=== PATIENT | female | born 1965 | race Caucasian/White ===

== ENCOUNTER → 2018-05-20 14:23 | Outpatient (CLI) | payer OTHER, SELFPAY ==
--- NOTE | 2018-05-20 | DI.MG.S_ITS ---
BILATERAL DIGITAL SCREENING MAMMOGRAM 3D/2D WITH CAD: 05/20/2018 CLINICAL: Routine screening. Comparison is made to exam dated: 07/02/2014 mammogram - [facility]. There are scattered fibroglandular elements in both breasts. Current study was also evaluated with a Computer Aided Detection (CAD) system. There is an irregular equal density asymmetry with an indistinct margin in the right breast at 12 o'clock middle depth. No other significant masses, calcifications, or other findings are seen in either breast. IMPRESSION: INCOMPLETE: NEEDS ADDITIONAL IMAGING EVALUATION The irregular equal density asymmetry in the right breast is indeterminate. Mediolateral and spot compression views as well as additional views with possible ultrasound are recommended. This exam was interpreted at Station ID: [id number]. NOTE: For mammograms, a report in lay terms will be sent to the patient. Approximately 15% of breast malignancies will not be visualized mammographically. In the management of a palpable breast mass, a negative mammogram must not discourage biopsy of a clinically suspicious lesion. Electronically Signed By: Omer soto/monae:05/20/2018 16:48:28 letter sent: Additional Imaging Needed ACR BI-RADS Category 0: Incomplete 3340F
== END ==
PROVIDERS: Family Provider Internal Medicine; PCP Internal Medicine; Visit Provider Specialist
DX: Z12.31 Encounter for screening mammogram for malignant neoplasm of breast (principal); R92.8 Other abnormal and inconclusive findings on diagnostic imaging of breast
CPT/HCPCS: 77063; 77067

== ENCOUNTER → 2018-06-06 08:55 | Outpatient (CLI) | payer OTHER, SELFPAY ==
--- NOTE | 2018-06-06 08:56 | DI.MG.S_ITS ---
UNILATERAL RIGHT DIGITAL DIAGNOSTIC MAMMOGRAM 3D/2D WITH ADDITIONAL VIEWS: 06/06/2018 CLINICAL: Additional evaluation requested from prior study. Comparison is made to exams dated: 05/20/2018 mammogram - [facility] and 07/02/2014 mammogram - [facility]. There are scattered fibroglandular elements in the right breast. There is an irregular equal density mass with a spiculated margin in the right breast at 12 o'clock middle depth. No other significant masses or calcifications are seen in the breast. IMPRESSION: INCOMPLETE: NEEDS ADDITIONAL IMAGING EVALUATION The irregular equal density mass in the right breast is indeterminate. An ultrasound is recommended. This exam was interpreted at Station ID: [id number]. NOTE: For mammograms, a report in lay terms will be sent to the patient. Approximately 15% of breast malignancies will not be visualized mammographically. In the management of a palpable breast mass, a negative mammogram must not discourage biopsy of a clinically suspicious lesion. Electronically Signed By: Chan joyner/monae:06/06/2018 10:06:33 ACR BI-RADS Category 0: Incomplete 3340F
--- NOTE | 2018-06-06 08:56 | DI.US.S_ITS ---
ULTRASOUND OF RIGHT BREAST: 06/06/2018 CLINICAL: Patient returns today to evaluate a focal asymmetry in the right breast. Comparison is made to exams dated: 06/06/2018 mammogram, 05/20/2018 mammogram - [facility], and 07/02/2014 mammogram - [facility]. Color flow ultrasound of the right breast was performed. Calzada scale images of the real-time examination were reviewed. There is a 1 cm x 1 cm x 0.8 cm lobulated mass with an irregular margin in the right breast at 12 o'clock anterior depth. This correlates with mammography findings. Color flow imaging demonstrates that there is no vascularity present. IMPRESSION: SUSPICIOUS OF MALIGNANCY - FOLLOW-UP RECOMMENDED The 1 cm x 1 cm x 0.8 cm lobulated mass in the right breast is suspicious of malignancy. An ultrasound guided biopsy is recommended. Findings and recommendations discussed in person with the patient by Dr. Blackman of the department of radiology at the time of evaluation. This exam was interpreted at Station ID: [id number]. Electronically Signed By: Chan Munguia M.D. cj/:06/06/2018 12:19:07 letter sent: Biopsy Required Ultrasound BI-RADS: 4 Suspicious abnormality
== END ==
PROVIDERS: Family Provider Internal Medicine; PCP Internal Medicine; Visit Provider Specialist
DX: R92.8 Other abnormal and inconclusive findings on diagnostic imaging of breast (principal); N63.10 Unspecified lump in the right breast, unspecified quadrant
CPT/HCPCS: 76642; 77065; G0279

== ENCOUNTER → 2018-07-01 12:38 | Outpatient (CLI) | payer OTHER, SELFPAY ==
--- NOTE | 2018-07-01 | PATH_ITS ---
[facility] Accession Number: [id number] . 01 Material submitted: . RIGHT BREAST . 01 Clinical history: . MASS 12:00 7CM FROM NIPPLE . 02 Diagnosis: Right Breast Needle Core Biopsy, 12 o'clock, 7 cm from the Nipple: Infiltrating ductal carcinoma with the following features: 1. Tumor size: Longest single core area of involvement measures 0.4 cm (multiple tissue cores involved with tumor). 2. Tumor grade: Song grade 1 of 3 (score 5 of 9), nuclear score 1 of 3, mitotic score 1 of 3, tubular differentiation score 3 of 3. 3. In situ carcinoma: Ductal carcinoma in situ present, low nuclear grade, cribriform type, without necrosis. 4. Vascular/lymphatic invasion: Negative. 5. Hormone receptor studies by immunohistochemistry: Estrogen receptor: Positive. 100% of cells with strong staining. Progesterone receptor: Positive. 100% of cells with strong staining. HER-2/zulay: Positive (3+). . . COMMENT: Immunohistochemistry for e-cadherin is positive which rules out the possibility of a lobular carcinoma. Immunohistochemistry for smooth muscle myosin is also performed and indicates that the small nests of tumor which are present here are negative and therefore invasive carcinoma. The in situ carcinoma component is positive for smooth muscle myosin reaffirming its in situ nature. Case was reviewed by Dr. Edgar Rivas who agrees with the diagnosis. MRV/07/03/2018 . 02 Electronically signed: . Rakan Avila MD, Pathologist NPI- [id number] . 01 Gross description: . Received one formalin-filled container labeled with the patient's name and designated right breast mass 12 o'clock 7 cm from nipple. The specimen is received with a plastic filter, sample loose in container. The specimen consists of multiple light yellow portions of tissue which aggregate to 1.0 x 0.5 x 0.2 cm. The specimen is filtered, wrapped, and entirely submitted in one cassette. Collection date: 07/01/2018. Collection time: 1:29 P. Total fixation time: 12 hours, up to 24. ([id number]) /FRR . 02 Pathologist provided ICD-10: C50.111 . 02 CPT . 995455, T33779, 410005, 781837, 665968 Specimen Comment: A duplicate report has been generated due to demographic updates. Performed at: 01 [facility] [address] [place] [address], [place], [place] [id number] MD Omer Giles MD Phone: [phone] Performed at: 02 [facility] [address] [address] [place], [place] [id number] MD Nomi Rivas MD Phone: [phone]
--- NOTE | 2018-07-01 | DI.MG.S_ITS ---
UNILATERAL RIGHT DIGITAL DIAGNOSTIC MAMMOGRAM: 07/01/2018 CLINICAL: Post clip placement. Right breast mass. Comparison is made to exams dated: 07/01/2018 ultrasound biopsy, 06/06/2018 mammogram, 05/20/2018 mammogram - [facility], and 07/02/2014 mamm[address] - [facility]. There are scattered fibroglandular elements in right breast. There is a biopsy clip next to the biopsy site. IMPRESSION: POST PROCEDURE MAMMOGRAM FOR MARKER PLACEMENT There is a biopsy clip next to the biopsy site. This exam was interpreted at Station ID: [id number]. NOTE: For mammograms, a report in lay terms will be sent to the patient. Approximately 15% of breast malignancies will not be visualized mammographically. In the management of a palpable breast mass, a negative mammogram must not discourage biopsy of a clinically suspicious lesion. Electronically Signed By: Emily Her M.D. fx/:07/02/2018 09:03:32 Entry: - 07/02/2018 09:03:32 ACR BI-RADS Category Post-procedure mammogram for marker placement
--- NOTE | 2018-07-01 12:39 | DI.US.S_ITS ---
ULTRASOUND GUIDED BIOPSY RIGHT BREAST USING VACUUM DEVICE WITH POST MAMMOGRAPHIC AND ULTRASOUND IMAGIN07/01/2018 CLINICAL: Right breast mass. PATIENT CONSENT: Risks (minor bleeding, infection, vasovagal reaction and repeat procedure), benefits and alternatives were explained to the patient and written informed consent was obtained. Correlation is made to exams dated: 06/06/2018 ultrasound, 06/06/2018 mammogram, 05/20/2018 mammogram - [facility], and 07/02/2014 mammogram - [facility]. An ultrasound guided biopsy using real-time ultrasound was performed for the oval mass located in the right breast at 12 o'clock middle depth. This was described on the previous ultrasound report. The skin was prepped in the usual manner. Local anesthetic was administered to the access site. The abnormality was approached from the lateral aspect. A 13 gauge biopsy needle was placed adjacent to the abnormality under ultrasound guidance. Once the needle was documented to be in the correct location, five specimens were obtained using the Mammotome biopsy system. Post procedure mammographic and ultrasound imaging demonstrates the clip adjacent to the targeted area. The specimens were sent to the laboratory for pathological analysis. IMPRESSION: ULTRASOUND GUIDED BIOPSY MALIGNANT Ultrasound guided biopsy of the mass in the right breast middle depth was successful. Pathology demonstrates infiltrating ductal carcinoma. This is concordant with imaging findings. This exam was interpreted at Station ID: [id number]. Emily Ortiz M.D. fxlk/:07/04/2018 09:28:42
== END ==
PROVIDERS: PCP Internal Medicine; Visit Provider Specialist
DX: C50.811 Malignant neoplasm of overlapping sites of right female breast (principal); Z17.0 Estrogen receptor positive status [ER+]
CPT/HCPCS: 19083; 77065; G0279

== ENCOUNTER → 2018-07-11 14:36 | Outpatient (CLI) | payer OTHER, SELFPAY ==
--- NOTE | 2018-07-11 14:38 | DI.RAD.S_ITS ---
PROCEDURE: XR CHEST 2V INDICATIONS: New diagnosis breast cancer rule out Mets TECHNIQUE: 2 views of the chest were acquired. COMPARISON: [facility], , CHEST 1 VIEW, 12/10/2016, 12:54. FINDINGS: Surgical changes and devices: None. Lungs and pleura: No pleural effusions or pneumothorax. Lungs are clear. Mediastinum: Mediastinal contours are normal. Heart size is normal. Bones and chest wall: No suspicious bony abnormalities. Soft tissues appear unremarkable. IMPRESSION: No acute cardiopulmonary pathology. Dictated by: Hayder Adan M.D. on 07/11/2018 at 15:40 Approved by: Hayder Adan M.D. on 07/11/2018 at 15:41
[2018-07-11 14:53] LABS: Add Manual Diff / Slide Review NO; Basophils Percent Auto 0.8 % (0-2); Eosinophils Percent Auto 0.9 % (2-4); Hematocrit 42.1 % (36-46); Hemoglobin 14.1 g/dL (12.0-16.0); Lymphocytes Percent Auto 15.3 % (25-40); Mean Corpuscular HGB Conc 33.5 % (30-36); Mean Corpuscular Hemoglobin 28.6 PG (26-34); Mean Corpuscular Volume 85.5 fL (80-100); Monocytes Percent Auto 4.5 % (3-14); Neutrophils Absolute Auto 7600 /uL (3000-5900); Neutrophils Percent Auto 78.5 % (50-75); Platelet Count 283 X10^3/uL (150-400); Red Blood Cell Count 4.92 X10^6/uL (4.0-5.2); Red Cell Distribution Width 14.2 % (11.6-14.8); White Blood Cell Count 9.7 X10^3/uL (4.5-11.0)
[2018-07-11 15:12] LABS: Alanine Aminotransferase 43 IU/L (9-52); Albumin 4.5 g/dL (3.5-5.0); Albumin Globulin Ratio 1.6 (1.0-2.8); Alkaline Phosphatase 53 U/L (38-126); Aspartate Aminotransferase 33 IU/L (14-36); BUN Creatinine Ratio 18.6 (6-22); Bilirubin Total 0.5 mg/dL (0.2-1.3); Blood Urea Nitrogen 13 mg/dL (7-17); Calcium 9.5 mg/dL (8.4-10.2); Carbon Dioxide 23 mmol/L (22-32); Chloride 104 mmol/L (98-107); Estimated Glomerular Filt Rate > 60.0 mL/min (>60); Globulin 2.9 g/dL (1.7-4.1); Glucose 97 mg/dL (70-100); HEMOLYSIS < 15 (0-50); Potassium 4.1 mmol/L (3.4-5.1); Sodium 139 mmol/L (137-145); Total Protein 7.4 g/dL (6.3-8.2)
== END ==
PROVIDERS: PCP Internal Medicine; Visit Provider Specialist
DX: C50.919 Malignant neoplasm of unspecified site of unspecified female breast (principal)
CPT/HCPCS: 36415; 71046; 80053; 85025

== ENCOUNTER → 2018-07-24 07:33 | Outpatient (CLI) | payer OTHER, SELFPAY ==
--- NOTE | 2018-07-24 | DI.US.S_ITS ---
ULTRASOUND GUIDED WIRE LOCALIZATION RIGHT BREAST: 07/24/2018 CLINICAL: Pre-op wire localization. Correlation is made to exams dated: 07/01/2018 mammogram, 07/01/2018 ultrasound biopsy, 06/06/2018 ultrasound, 06/06/2018 mammogram, 05/20/2018 mammogram - [facility], and 07/02/2014 mammogram - [facility]. A wire localization using ultrasound guidance was performed for the mass located in the right breast at 12 o'clock middle depth. This was described on the previous biopsy report. The skin was prepped in the usual manner. Local anesthetic was administered to the access site. The localization was approached from the lateral aspect. A wire was inserted into the targeted area under ultrasound guidance. Post placement imaging demonstrates the wire traverses the targeted area. IMPRESSION: WIRE LOCALIZATION Wire localization for the mass in the right breast at 12 o'clock middle depth was successful. A specimen radiograph is recommended. This exam was interpreted at Station ID: [id number]. eJffery yates/:07/24/2018 12:33:17
== END ==
PROVIDERS: PCP Internal Medicine; Visit Provider Internal Medicine
DX: N63.10 Unspecified lump in the right breast, unspecified quadrant (principal)
CPT/HCPCS: 19285

== ENCOUNTER 2018-07-24 07:34 | Day surgery (SDC) | payer OTHER, SELFPAY ==
[2018-07-14 12:04] VITALS: BMI 42.8
[2018-07-24] VITALS (8 sets, daily range): BP systolic 103–165; BP diastolic 51–87; PULSE 70–86; RESP 12–20; TEMP 36.3–37; O2SAT 93–99; BMI 39.1
--- NOTE | 2018-07-24 | DI.MG.S_ITS ---
UNILATERAL RIGHT DIGITAL DIAGNOSTIC MAMMOGRAM: 07/24/2018 CLINICAL: Right breast mass. Comparison is made to exams dated: 07/01/2018 mammogram, 07/01/2018 ultrasound biopsy, 06/06/2018 ultrasound, 06/06/2018 mammogram, and 05/20/2018 mammogram - [facility]. There are scattered fibroglandular elements in right breast. There is a marker clip in the right breast at 12 o'clock middle depth. This marker clip placement is migrated from the biopsy site. IMPRESSION: POST PROCEDURE MAMMOGRAM FOR MARKER PLACEMENT Marker clip placement in the right breast !2:00 middle depth is migrated from biopsy site. The wire is placed through the biopsied lesion via ultrasound guidance, and this was discussed with Dr. Cole prior to surgery. Recommend specimen radiograph. This exam was interpreted at Station ID: [id number]. NOTE: For mammograms, a report in lay terms will be sent to the patient. Approximately 15% of breast malignancies will not be visualized mammographically. In the management of a palpable breast mass, a negative mammogram must not discourage biopsy of a clinically suspicious lesion. Electronically Signed By: Jeffery yates/:07/24/2018 12:29:32 ACR BI-RADS Category Post-procedure mammogram for marker placement
--- NOTE | 2018-07-24 | PATH_ITS ---
[facility] Accession Number: [id number] . 01 Material submitted: . PART A: RIGHT BREAST PART B: RIGHT SENTINEL LYMPH NODES PART C: RIGHT BREAST POSTERIOR MEDIAL POSTEROIR WALL PART D: RIGHT BREAST TISSUE UNDER LESION IMMEDIATELY ABOVE MUSCLE . 02 Diagnosis: A. Right Breast: Infiltrating ductal carcinoma of right breast. See CAP cancer summary below. 1. Procedure: Wire localized wide local excision. 2. Lymph node sampling: See Part B. 3. Specimen Laterality: Right 4. Tumor site: Not specified. 5. Tumor size: 1.5 x 1.1 x 0.3 cm (gross measurements). 6. Histologic type: Invasive ductal carcinoma, no special type. 7. Histologic grade (Song histologic score) Glandular/Tubular differentiation: Score 3 of 3. Nuclear Pleomorphism: Score 2 of 3. Mitotic Rate: Score 1 of 3. Overall Grade: Grade 2 of 3 Intermediate grade (score 6 of 9). 8. Tumor focality: Single focus. 9. Ductal carcinoma in situ: Present and considered extensive being admixed with the invasive component as well as being present peripheral to the invasive tumor. Architectural patterns: Solid. Nuclear grade: Intermediate. Necrosis: Absent. 10. Margins Invasive carcinoma: Anterior: Greater than 2 cm. Posterior: 1.1 cm. Superior: 1.3 cm. Inferior: 0.3 cm. Medial: 2.0 cm. Lateral: 2.5 cm. Ductal carcinoma in situ: Inferior margin: Positive (single microscopic focus). All other margins widely free of in situ carcinoma. 11. Regional lymph nodes: Three lymph nodes negative for tumor (all lymph nodes sentinel lymph nodes. See part B). 12. Lymph-vascular invasion: Not identified. 13. Hormone Receptor Studies: Estrogen receptor: Positive. 100% of cells with average strong staining Progesterone receptor: Positive. 100% of cells with average strong staining. Her2-Sherif: Positive (3+) 14. Pathologic staging: AJCC, 8th ed., 2017 Primary tumor: pT1c Regional lymph nodes: pN0(sn) . B. Right [place] Lymph Nodes: Three lymph nodes, all negative for malignancy on multiple sections. . C. Right Breast Posterior Medial Posterior Wall: Benign breast tissue, negative for atypia. Small microscopic lymph node, negative for malignancy. . D. Right Breast Tissue Under Lesion Immediately Above Muscle: Soft tissue including skeletal muscle, all negative for malignancy. MRV/07/29/2018 . 02 Comment: Case reviewed by Dr. Richa Bhakta, who agrees with the diagnosis. . The results of this evaluation are telephoned to the office of Dr. Jose Manuel Velarde at 11:30 a.m. on 07/29/2018. . 02 Electronically signed: . Rakan Avila MD, Pathologist NPI- [id number] . 01 Gross description: . (A) Received in formalin, labeled right breast lumpectomy, suture long medial, short anterior, is a piece of breast tissue (up to 8.5 cm AP, 3.0 cm SI, 5.5 cm ML) with no overlying skin. The specimen is oriented with two black sutures (long-medial, short-anterior). A localization wire is identified floating loose in the specimen container. The specimen is serially sectioned AP into 24 slices with the anterior and posterior resection margins as slices #1 and #24 respectively. The breast tissue is fatty and contains a wheeler-white, firm, possible mass (0.6 x 0.5 x 0.3 cm) located in slices #12 and #13, 3.8 cm from the anterior, 4.1 cm from the posterior, 1.1 cm from the superior, 1.1 cm from the inferior, 0.8 cm from the medial, and 3.7 cm from the lateral resection margins. A biopsy marker is identified within the adipose tissue of slice #14. A second possible mass (1.5 x 1.1 x 0.3 cm) is identified within slice #20, 2.1 cm from the first mass, 1.1 cm from the posterior, 1.3 cm from the superior, 1.5 cm from the inferior, 2.0 cm from the medial, and 2.5 from the lateral resection margins. No other irregular areas are identified. Ink code: Purple - anterior; yellow - posterior; black - superior; orange - inferior; green - medial; blue - lateral; red - not a resection margin. Section code: (A1) anterior resection margin, perpendicularly sectioned, registration representative; (A2-A5) slice #11, tissue adjacent to the first mass, entirely submitted; (A6-A7) slice #12, first mass, bisected ML, medial half submitted and further bisected and submitted SI; (A8-A11) slice #13, first mass, entirely submitted; (A12-A15) slice #14, tissue involving the biopsy marker, entirely submitted; (A16) slice #17, registration representative; (A17-A18) slice #18, entirely submitted; (A19-A20) slice #19, tissue adjacent to second mass, entirely submitted; (A21) slice #20, second mass, entirely submitted; (A22) slice #21, tissue adjacent to second mass, entirely submitted; (A23) slice #22, entirely submitted; (A24) slice #23, entirely submitted; (A25) posterior resection margin, perpendicularly sectioned, entirely submitted. (B) Received in formalin, labeled right sentinel nodes (lymph), are multiple pieces of adipose tissue (4.8 x 4.3 x 1.3 cm in aggregate) containing multiple lymph nodes (0.9 x 0.8 x 0.2 cm - 4.2 x 1.3 x 1.2 cm). Section code: (B1, B2) one serially sectioned lymph node in each cassette; (B3-B6) one serially sectioned lymph node. (C) Received in formalin, labeled right breast posterior medial, posterior wall, stitch forbes inside wall), is a piece of breast tissue (7.5 x 7.1 x 1.5 cm) with no overlying skin. A black suture forbes the inside wall. No localization wire or biopsy marker is identified. The inside wall is inked purple and the outside is orange. The specimen is serially sectioned into 20 slices. The breast tissue is fatty with no nodules, masses, or lesions identified. Section code: (C1) slice #1, entirely submitted; (C2) slices #2 and #3, inside wall; (C3) slices #4 and #5, inside wall; (C4) slice #6, inside wall; (C5) slice #7, inside wall; (C6) slice #8, inside wall; (C7-C8) slice #9, entirely submitted; (C9) slice #10, entirely submitted; (C10) slice #11, inside wall; (C11) slice #12, inside wall; (C12) slice #13, inside wall; (C13) slice #14, inside wall; (C14) slice #15, inside wall; (C15) slice #16, entirely submitted; (C16) slice #17, entirely submitted; (C17) slice #18, entirely submitted; (C18) slice #19, entirely submitted; (C19) slice #20, entirely submitted. NOTE: The inside wall is entirely submitted. (D) Received in formalin, labeled (right breast tissue under lesion immediately above muscle), is an unoriented piece of fibrofatty tissue (2.3 x 1.9 x 0.4 cm) with no overlying skin. No localization wire or biopsy marker is identified. The tissue is inked black, serially sectioned, and entirely submitted in cassette D1. . NOTE: Approximate total fixation time in formalin for all specimens - 70 hours and 30 minutes calculated using a collection date of 07/24/2018 with no collection time given. ([id number]) /FRR . 02 Microscopic: . . Sections from part 1 are from the right breast. The grossly described small mass is secondary to fat necrosis with no evidence of malignancy. The larger mass, however, is an infiltrating ductal carcinoma. Individual tumor cells are of intermediate size with slightly enlarged nuclei with generally fine chromatin and small to indistinct nucleoli. The tumor cells are arranged in irregular nests as they infiltrate a background fibrous stroma and also the nests infiltrate individually within adipose tissue. Mitotic activity is present but is considered low. There are focal areas in which the tumor cells appear to form small tubular structures, but this is a minimal part of the pattern. Overall, nuclear grade is considered intermediate with tubular differentiation low and mitotic rate also low. This equates to a differentation score of 6 out of 9, which is considered to be grade 2. Because of the nesting growth pattern Immunohistochemistry is performed in order to ascertain how much of the tumor is actually in situ and how much is infiltrating. Antibodies used are against smooth muscle myosin on two of the blocks. This indicates that there is a moderate amount of in situ carcinoma admixed with the infiltrating tumor. Some in situ carcinoma is seen at the periphery as well, and therefore it is considerd to be extensive. The in situ carcinoma is also of intermediate nuclear grade and of the solid type with no evidence of necrosis. The infiltrating tumor is seen to be within 0.3 cm of the inferior margin; however, the other margins are widely free of tumor was grossly described. The in situ carcinoma is also close to the inferior margin. In one area a small focus of DCIS actually touches the inked inferior margin (considered a positive margin). There is no evidence of lymphatic and/or vascular invasion in the multiple sections prepared. . IMMUNOHISTOCHEMISTRY RESULTS FOR HORMONE RECEPTORS Estrogen Receptor: Positive with 100% of the cells staining with average strong intensity. Progesterone Receptor: Positive with 100% of the cells staining with average strong intensity. HER-2/sherif: Positive (3+). . Sections from part B are of sentinel lymph nodes. Three lymph nodes have been sectioned and all are negative for malignancy. One of the lymph nodes has one area in which there are a few cells within the sinusoid suggestive of possible tumor involvement; however, immunohistochemitsry for pancytokeratin in this area is negative. . Sections from part C are from benign breast tissue stated to be posterior medial posterior wall. There is no evidence of tumor witin these sections. There is, however, a small lymph node of microscopic size present within this tissue and it is negative for malignancy. . Sections from part D are of soft tissue including fat, fibrous tissue and skeletal muscle. There is no evidence of malignancy. . 02 Pathologist provided ICD-10: C50.911 . 02 CPT . 609792, 828716, 968365, 763983, K04705, E60569, 037746, 769135, 747358 Performed at: 01 [facility] [address] [facility], [place], [place] [id number] MD Omer Giles MD Phone: [phone] Performed at: 02 [facility] [address] [place], [place] [id number] MD Nomi Rivas MD Phone: [phone]
--- NOTE | 2018-07-24 | DI.MG.S_ITS ---
SPECIMEN RIGHT BREAST: 07/24/2018 CLINICAL: Right breast specimen. Correlation is made to exams dated: 07/24/2018 mammogram and 07/01/2018 [facility]. A surgical specimen was imaged for the previous biopsy site located in the right breast at 12 o'clock middle depth. IMPRESSION: SPECIMEN The imaged specimen includes the lesion, a biopsy clip, and the distal portion of the localization wire. Waiting for pathology results. A final report will be issued when these become available. This exam was interpreted at Station ID: [id number]. Jeffery ytaes/:07/24/2018 13:29:07
--- NOTE | 2018-07-24 08:00 | DI.NM.S_ITS ---
PROCEDURE: NM SENTINEL NODE W IMAGING RADIOPHARMACEUTICAL: 0.5 mCi Millipore filtered Tc-99m sulfur colloid. INDICATIONS: localization of sentinel node TECHNIQUE: Written informed consent was obtained. The right breast was prepped and draped in a sterile fashion. Tc-99m sulfur colloid was injected intra-dermally and subcutaneously right breast. Images were obtained approximately 5-25 minutes after tracer injection. FINDINGS: [place] node identified in the anterior right axilla. IMPRESSION: Administration of subdermal radiotracer in the right breast for intra-operative sentinel lymph node localization. [place] node was visualized in the anterior right axilla. Dictated by: Yvonne Back MD, PhD on 07/24/2018 at 10:09 Approved by: Yvonne Back MD, PhD on 07/24/2018 at 10:12
[2018-07-24] MEDS: LACTATED RINGERS 1,000 ML 42 ML IV (09:53)
--- NOTE | 2018-07-24 11:44 | PM.PREOP ---
Pre-operative Note Interval Note Pre-op Check: Yes History & Physical Reviewed by Physician and Yes Exam Performed Changes: Yes H&P completed within 30 days and has changed as indicated here:: Had successful needle localization this morning
--- NOTE | 2018-07-24 11:44 | SUR.OPER ---
Supine on padded OR bed, head on pillow, arms secured on padded arm boards at <90 degrees abduction, legs uncrossed, safety belt at thigh, tape over blanket over lower legs.
[2018-07-24] MEDS: CEFAZOLIN 2 GM/100 ML FROZ.PIGGY IV (12:20)
[2018-07-24] MEDS: BUPIVACAINE 0.5% W/ EPI (PF) VIAL 30 ML INJ (13:56)
--- NOTE | 2018-07-24 14:56 | P.OP_ITS ---
Operative Date/Time/Diagnoses Date of procedure: 07/24/18 Time of procedure: 14:40 Pre-op diagnosis: Right-sided breast cancer Post-op diagnosis: same Procedure & Clinicians Procedure: Needle localization lumpectomy with sentinel node biopsies Same procedure as scheduled: Yes Indications: Surgical treatment of breast cancer Surgeon: Jose Manuel Cole Click Yes if Unassisted: Yes Anesthesia Type: General Operative Notes Findings: Three nodes removed 2 of which were hot. One was between the other 2. Larger mass than anticipated and much closer to the chest wall than imaging suggested. Removed additional tissue beyond lesion in and attempt to clear any margins that might be close Closure Type: primary Specimen(s): other (Mass with needle, margin, tissue beyond margin over pectoralis and 3 lymph nodes) Implants & Drains: None Estimated Blood Loss (mL): 30 Blood products transfused: none Procedure in detail: The patient is placed supine on the operating room table underwent general LMA anesthesia. She was prepped and draped in the usual fashion. Curvilinear incision was made overlying where the mass was thought to be an incorporated the insertion site of the needle. Was carried into the subcu and to the breast tissue. Dissection was carried around the palpable mass and this palpable mass contain the needle. Checking carefully as I went I freed the mass from surrounding structures principal using cautery. Down nearly to the chest wall I came across the bottom and found myself palpating the needle. I took additional tissue right then in their overlapping the needle and came across the bottom and released the specimen. It was sent for mammography and the lesion was thought to be right near the edge of my dissection. This was remarkable because I was almost down to chest wall and that this was not suspected based on the mammogram. Since I knew exactly where the needle had been as I had page very close attention to this I took additional tissue all along the medial wall the posterior wall and to the lateral extent of this lesion. I removed that and then finally took a small piece of tissue remaining that was right on muscle. In fact I took muscle fascia with me. This was all an attempt to make sure my posterior margin was adequate. Clips were then used to krista the cavity after irrigating the wound and obtaining hemostasis. The space was mostly able to be closed to the large size the patient's breast. This was done with interrupted 3 0 Polysorb. The skin was closed with a running 4 0 Polysorb subcuticular stitch. Attention was turned to the axilla. Local anesthetic was infiltrated and incision made just below the hair-bearing area in the crease between the axilla and breast. Was carried down into the axilla proper through the axillary fascia. Using the Navigator probe identified 3 lymph nodes and removed them. There were all adjacent to 1 another. On testing only 2 of them were hot. The 10 sec counts were 16,000 and 6900. In re-examining the axilla no other positive nodes could be found. The axillary fascia was closed after obtaining hemostasis. This was done with 3 0 Polysorb. The subcu was closed with 3 interrupted 3 0 Polysorb and the skin was closed running 4 0 Polysorb subcuticular stitch and Steri- Strips. Dressings were applied and patient was awakened extubated taken recovery room good condition. Complications: none Condition: stable Disposition: PACU
[2018-07-24] MEDS: OXYCODONE/ACETAMINOPHEN 5/325 TABLET 1 TAB PO (16:07)
== END 2018-07-24 16:50 | disposition home or self-care (01) ==
PROVIDERS: PCP Internal Medicine; Visit Provider Specialist
PROC: (CPT 19301; principal; 2018-07-24 10:45)
DX: C50.911 Malignant neoplasm of unspecified site of right female breast (principal); Z86.711 Personal history of pulmonary embolism; N63.10 Unspecified lump in the right breast, unspecified quadrant
CPT/HCPCS: 19301; 38500; 19285; 76098; 77065; 78195; A9541; J0690; J1100; J2250; J2405; J2704; J3010

== ENCOUNTER 2018-08-21 09:53 | Day surgery (SDC) | payer OTHER, SELFPAY ==
[2018-08-18 07:50] VITALS: BMI 42.8
--- NOTE | 2018-08-21 | DI.RAD.S_ITS ---
PROCEDURE: XR CHEST 1V INDICATIONS: post operative port TECHNIQUE: One view of the chest was acquired. COMPARISON: [facility], [facility]GG[facility], XR CHEST 2V, 07/11/2018, 14:43. [facility], [facility], CHEST 1 VIEW, 12/10/2016, 12:54. FINDINGS: Surgical changes and devices: Port-A-Cath in normal position from a left-sided approach.. Lungs and pleura: No pleural effusions or pneumothorax. Lungs are clear. Mediastinum: Mediastinal contours appear normal. Heart size is normal. Bones and chest wall: No suspicious bony lesions. Overlying soft tissues appear unremarkable. IMPRESSION: Port-A-Cath in normal position, no pneumothorax found. Dictated by: Bret Lora M.D. on 08/21/2018 at 14:23 Approved by: Bret Lora M.D. on 08/21/2018 at 14:24
[2018-08-21 10:21] VITALS: BP 147/86; PULSE 66; RESP 16; TEMP 36.6; O2SAT 98; BMI 42.8
--- NOTE | 2018-08-21 10:41 | PM.PREOP ---
Pre-operative Note Interval Note Pre-op Check: Yes History & Physical Reviewed by Physician and Yes Exam Performed Changes: Yes H&P completed within 30 days and has changed as indicated here:: Wound in axilla has closed
[2018-08-21 10:53] VITALS: BMI 42.8
[2018-08-21] MEDS: CEFAZOLIN 2 GM/100 ML FROZ.PIGGY IV (11:35)
--- NOTE | 2018-08-21 11:59 | SUR.OPER ---
Supine on gel mattress, head on gel donut, towel roll under shoulders, left arm gel padded and tucked. Right arm on padded armboard <90 and secured. Padded safety strap to thighs over blanket, tape to lower legs over blanket to secure. Legs uncrossed.
[2018-08-21] MEDS: LIDOCAINE 1% 20 ML INJ INJ (12:08)
[2018-08-21] MEDS: HEPARIN 5,000 UNIT, SODIUM CHLORIDE 0.9% 50 ML IV (12:09)
[2018-08-21 12:26] VITALS: BP 121/61; PULSE 80; RESP 13; TEMP 36.3; O2SAT 99
[2018-08-21 12:31] VITALS: BP 117/59; PULSE 72; RESP 11; O2SAT 98
[2018-08-21 12:37] VITALS: BP 111/60; PULSE 71; RESP 10; TEMP 36.4; O2SAT 100
[2018-08-21 12:41] VITALS: BP 124/51; PULSE 72; RESP 10; O2SAT 100
--- NOTE | 2018-08-21 12:41 | PM.OP.1 ---
Operative Date/Time/Diagnoses Date of procedure: 08/21/18 Time of procedure: 12:30 Pre-op diagnosis: Right-sided breast cancer Post-op diagnosis: same Procedure & Clinicians Procedure: Placement of left subclavian Port-A-Cath Same procedure as scheduled: Yes Indications: Need for IV access Surgeon: Jose Manuel Cole Click Yes if Unassisted: Yes Anesthesia Type: General Operative Notes Findings: Tip in the SVC. No evidence of pneumothorax. Closure Type: primary Specimen(s): none sent Implants & Drains: Regular profile Port-A-Cath Estimated Blood Loss (mL): 5 Procedure in detail: Patient is placed supine on the operating room table and underwent general LMA anesthesia. Roll was placed between her shoulders. She was prepped and draped in the usual fashion. Local anesthetic was infiltrated in a field block fashion under the left clavicle. Transverse incision was made and needle inserted into the subclavian vein. Guidewire was passed the needle removed. The guidewire was going into the appropriate direction. The pocket was created inferior to the incision and a port was connected to the catheter and taper to appropriate length. The port was placed in the pocket. Dilator and introducer were passed over the guidewire under fluoroscopic control. The dilator and guidewire were removed leaving the introducer in place. The catheter was passed through it initial we went up into the neck. I backed it out and began to peel the catheter way it slipped down into the superior vena cava and was advanced further. The catheter was then peeled completely away and the catheter tip was left in the superior vena cava. The port was secured to the chest wall with interrupted 2 0 silk. The subcu was closed with 3 0 Polysorb. The skin was closed a running 4 0 Polysorb subcuticular stitch and Steri-Strips. Prior to closure the port was aspirated and flushed with heparinized saline. Dressing was applied the patient was taken to recovery room extubated in good condition. A chest x-ray performed there showed the tip in the SVC and no evidence of a pneumothorax. Complications: none Condition: stable Disposition: PACU
[2018-08-21 12:53] VITALS: BP 129/70; PULSE 68; RESP 15; TEMP 36.7; O2SAT 98
== END 2018-08-21 13:12 ==
LOC: OR 09:54
PROVIDERS: PCP Internal Medicine; Visit Provider Specialist
PROC: (CPT 36561; principal; 2018-08-21 11:00)
DX: C50.911 Malignant neoplasm of unspecified site of right female breast (principal); Z45.2 Encounter for adjustment and management of vascular access device; I10 Essential (primary) hypertension; E03.9 Hypothyroidism, unspecified; Z86.711 Personal history of pulmonary embolism; Z87.891 Personal history of nicotine dependence
CPT/HCPCS: 36561; 71045; C1788; J0690; J1100; J1644; J2250; J2405; J2704; J3010

== ENCOUNTER → 2018-09-02 13:58 | Outpatient (CLI) | payer OTHER, SELFPAY ==
[2018-09-02 15:32] LABS: Add Manual Diff / Slide Review NO; Basophils Percent Auto 1.1 % (0-2); Eosinophils Percent Auto 1.4 % (2-4); Hematocrit 39.3 % (36-46); Lymphocytes Percent Auto 28.3 % (25-40); Mean Corpuscular HGB Conc 33.1 % (30-36); Mean Corpuscular Volume 87.6 fL (80-100); Monocytes Percent Auto 6.9 % (3-14); Neutrophils Absolute Auto 7300 /uL (3000-5900); Neutrophils Percent Auto 62.3 % (50-75); Platelet Count 294 X10^3/uL (150-400); Red Blood Cell Count 4.49 X10^6/uL (4.0-5.2); Red Cell Distribution Width 14.2 % (11.6-14.8); White Blood Cell Count 11.7 X10^3/uL (4.5-11.0)
== END ==
PROVIDERS: PCP Internal Medicine; Visit Provider Specialist
DX: D72.9 Disorder of white blood cells, unspecified (principal)
CPT/HCPCS: 36415; 85025

== ENCOUNTER 2019-10-19 08:52 | Day surgery (SDC) | payer OTHER, SELFPAY ==
[2019-10-19] VITALS (7 sets, daily range): BP systolic 127–149; BP diastolic 62–84; PULSE 61–72; RESP 11–16; TEMP 35.7–36.1; O2SAT 92–98
[2019-10-19] MEDS: LACTATED RINGERS 1,000 ML 42 ML IV (09:03)
--- NOTE | 2019-10-19 10:20 | PM.HP.1 ---
History of Present Illness History of Present Illness Date Patient Seen: 10/19/19 Time Patient Seen: 10:21 Chief complaint: [id number] PORT REMOVAL Narrative: The patient is a woman who has completed chemotherapy for breast cancer and is here to have her port removed. Patient History Medical History Anemia, unspecified (Resolved) Breast cancer, right (Acute) Hypertension (Chronic) Hypothyroid (Chronic) Osteoarthritis (Chronic) Other pulmonary embolism with acute cor pulmonale (Resolved) Perimenopausal (Suspected) Personal history of pulmonary embolism (Resolved ~12/2016) Port-A-Cath in place (Acute 08/21/18) Pulmonary hypertension (Resolved ~12/2016) Systolic heart failure (Resolved) Surgical History History of cholecystectomy (Resolved) History of lateral meniscus repair of right knee (Resolved) History of tonsillectomy (Resolved) S/P lumpectomy, right breast (Acute 07/24/18) Status post hysteroscopy (12/20/17) Family & Social History Social History: household members spouse Tobacco & Substance use: Smoking Status Former smoker alcohol intake current Substance Use Type does not use Meds Home Medications and Allergies Home Medications Medication Instructions Recorded Confirmed Type aspirin 81 mg PO DAILY #0 12/10/16 10/19/19 History levothyroxine [Synthroid] 175 mcg PO DAILY #0 12/10/16 10/19/19 History metoprolol tartrate 25 mg PO BID #60 12/12/16 10/19/19 Rx multivitamin 1 tab PO DAILY 07/24/18 10/19/19 History ondansetron 8 mg PO BID-TID PRN #10 tab 07/24/18 10/19/19 Rx oxycodone-acetaminophen [Percocet] See Rx Instructions .ROUTE 07/24/18 08/18/18 Rx .COMPLEX PRN #20 tab anastrozole 1 mg 10/19/19 History diclofenac sodium 75 mg PO BID 10/19/19 10/19/19 History magnesium chloride [Slow-Mag] 71.5 mg PO BID 10/19/19 10/19/19 History Allergies Allergy/AdvReac Type Severity Reaction Status Date / Time penicillin G [PENICILLIN G] Allergy Intermediate HIVES Verified 10/19/19 09:05 steri strips Allergy Mild Uncoded 10/19/19 09:05 tegaderm Allergy Mild Uncoded 10/19/19 09:09 Review of Systems Review of Systems ROS Unobtainable: All systems reviewed & are unremarkable except as noted in HPI and below Exam Vital Signs (past 8 hours): - 10/19/19 09:17 Temperature 96.3 F L Pulse Rate 72 Respiratory Rate 16 Blood Pressure 149/81 H Pulse Oximetry 98 Oxygen Delivery Method Room Air Narrative Exam Narrative: Co Operative no apparent distress. Eyes are nonicteric. Lungs are clear to auscultation nose rales or rhonchi. Heart regular rate and rhythm without murmur gallop. Scar left in for for a clavicular fossa noted. Port is there below the scar. No cellulitis or rashes in the region. Assessment & Plan Assessment & Plan narrative: Patient with breast cancer who has completed chemotherapy. She is here for port removal. I've discussed the procedure and Rony and risks of bleeding infection scarring and a divot. She appears to understand and wishes to proceed. The patient does not tolerate Steri-Strips or Tegaderm very well so I will closure with suture and use alternative dressing.
--- NOTE | 2019-10-19 10:23 | PM.PREOP ---
Pre-operative Note Interval Note History & Physical reviewed/Exam performed by Physician: Yes Changes to H&P: No
[2019-10-19] MEDS: CLINDAMYCIN 900 MG/50 ML PIGGYBACK 50 MG IV (10:27)
--- NOTE | 2019-10-19 10:46 | SUR.OPER ---
Supine on padded OR bed, head on pillow, left arm padded and tucked at side,right arm at less than 90 degrees on padded armboard. legs uncrossed, safety belt at thigh, tape over blanket over lower legs .
[2019-10-19] MEDS: BUPIVACAINE 0.5% (PF) VIAL 30 ML INJ (10:52)
--- NOTE | 2019-10-19 11:18 | PM.OP.1 ---
Operative Date/Time/Diagnoses Date of procedure: 10/19/19 Time of procedure: 11:00 Pre-op diagnosis: Breast cancer post chemotherapy Post-op diagnosis: same Procedure & Clinicians Procedure: Removal of left subclavian Port-A-Cath Same procedure as scheduled: Yes Indications: Patient with a Port-A-Cath no longer need of it Surgeon: Jose Manuel Cole Click Yes if Unassisted: Yes Anesthesia Type: General Operative Notes Findings: Port removed in its entirety Closure Type: primary Specimen(s): none sent Prosthetic devices, grafts, tissues, transplants, or devices: None Estimated Blood Loss (mL): 5 Blood products transfused: none Procedure in detail: The patient is placed supine on the operating room table and underwent general LMA anesthesia. She was prepped and draped in the usual fashion. Incision was made through the old scar after infiltrating local in a field block fashion around the port site. The incision was carried down to the level of the catheter. Catheter was from surrounding structures. A 3 0 Vicryl pursestring was placed around the catheter. The catheter was removed and the pursestring tied down to prevent back bleeding of the canal through which the catheter had been. The port was then dissected from the subcutaneous tissues and removed. The back wall of the encasing tissue was removed with cautery. Vicryl 300 was used to close the subcu. Because of the patient's severe reaction to tape/Steri-Strips in the past I used interrupted 4 0 Vicryl to close the skin covering it with Dermabond. The patient was awakened and taken to the recovery area in good condition. Complications: none Post-operative Condition: stable Disposition: PACU Plan for aftercare: Follow-up in the office
== END 2019-10-19 12:00 | disposition home or self-care (01) ==
PROVIDERS: Family Provider Internal Medicine; PCP Internal Medicine; Visit Provider Specialist
PROC: (CPT 36590; principal; 2019-10-19 10:45)
DX: Z45.2 Encounter for adjustment and management of vascular access device (principal); Z85.3 Personal history of malignant neoplasm of breast; E66.9 Obesity, unspecified; E03.9 Hypothyroidism, unspecified; I10 Essential (primary) hypertension
CPT/HCPCS: 36590; J1100; J1885; J2250; J2405; J2704; J3010

== ENCOUNTER → 2020-04-26 15:47 | Outpatient (CLI) | payer OTHER, SELFPAY ==
[2020-04-26 16:04] LABS: Bacteria Urine None Seen; WBC Urine None Seen (0-5/HPF)
[2020-04-26 17:09] LABS: Appearance Urine UA CLEAR; Bilirubin Urine UA NEGATIVE (NEGATIVE); Color Urine UA YELLOW; Glucose Urine UA NEGATIVE (Negative); Ketones Urine UA NEGATIVE (NEGATIVE); Leukocyte Esterase Urine UA NEGATIVE (NEGATIVE); Nitrite Urine UA NEGATIVE (Negative); Occult Blood Urine UA NEGATIVE (Negative); Protein Urine UA NEGATIVE (Negative); Urobilinogen Urine UA 0.2 E.U./dL (0.2)
[2020-04-26 17:18] LABS: RBC Urine 0-1/HPF (0-5/HPF); Squamous Epithelial Cell Urine 0-1 /HPF (0-5/HPF)
[2020-04-26 17:19] LABS: Culture Indicated Urine Cult Not Indicated
[2020-04-26 17:27] LABS: Add Manual Diff / Slide Review NO; Basophils Absolute Auto 100 /uL (0-100); Basophils Percent Auto 0.8 % (0-2); Eosinophils Absolute Auto 200 /uL (0-450); Eosinophils Percent Auto 2.4 % (2-4); Hematocrit 40.4 % (36-46); Hemoglobin 14.2 g/dL (12.0-16.0); Lymphocytes Absolute Auto 2500 /uL (1100-4500); Lymphocytes Percent Auto 25.8 % (25-40); Mean Corpuscular HGB Conc 35.2 % (30-36); Mean Corpuscular Hemoglobin 30.9 PG (26-34); Mean Corpuscular Volume 87.8 fL (80-100); Monocytes Absolute Auto 500 /uL (0-900); Monocytes Percent Auto 5.4 % (3-14); Neutrophils Absolute Auto 6200 /uL (1500-7000); Neutrophils Percent Auto 65.6 % (50-75); Platelet Count 208 X10^3/uL (150-400); Red Cell Distribution Width 14.6 % (11.6-14.8); White Blood Cell Count 9.5 X10^3/uL (4.5-11.0)
[2020-04-26 17:34] LABS: Hemoglobin A1C% w Est Avg Glu 5.4 % (4.0-6.0)
[2020-04-26 17:42] LABS: BUN Creatinine Ratio 30.3 (6-22); Blood Urea Nitrogen 23 mg/dL (7-17); Calcium 10.1 mg/dL (8.4-10.2); Carbon Dioxide 20 mmol/L (22-32); Chloride 100 mmol/L (98-107); Estimated Glomerular Filt Rate > 60.0 mL/min (>60); Glucose 92 mg/dL (70-100); HEMOLYSIS < 15 (0-50); Potassium 3.9 mmol/L (3.4-5.1); Sodium 133 mmol/L (137-145)
[2020-04-26 17:57] LABS: Free T4, Direct Thyroxine 1.74 ng/dL (0.78-2.19)
[2020-04-26 18:11] LABS: Thyroid Stimulating Hormone 4.22 uIU/mL (0.47-4.68)
== END ==
PROVIDERS: Family Provider Internal Medicine; PCP Internal Medicine; Referring Provider Internal Medicine; Visit Provider Orthopaedic Surgery
DX: Z01.818 Encounter for other preprocedural examination (principal); Z01.812 Encounter for preprocedural laboratory examination; R73.9 Hyperglycemia, unspecified; N39.0 Urinary tract infection, site not specified; E03.9 Hypothyroidism, unspecified
CPT/HCPCS: 36415; 80048; 81001; 83036; 84439; 84443; 85025; 93005

== ENCOUNTER → 2020-06-04 09:06 | Outpatient (CLI) | payer OTHER, SELFPAY ==
[2020-06-05 09:30] LABS: COVID19 Sendout Not Detected (Not Detect)
== END ==
PROVIDERS: Family Provider Internal Medicine; PCP Internal Medicine; Visit Provider Physician Assistant
DX: Z11.59 Encounter for screening for other viral diseases (principal)
CPT/HCPCS: 87635

== ENCOUNTER 2020-06-07 06:16 | Day surgery (SDC) | payer OTHER, SELFPAY ==
[2020-05-31 09:44] VITALS: BMI 38.7
[2020-06-07] VITALS (15 sets, daily range): BP systolic 117–158; BP diastolic 68–86; PULSE 69–91; RESP 12–74; TEMP 36.2–36.7; O2SAT 93–99; BMI 38.7
--- NOTE | 2020-06-07 | DI.RAD.S_ITS ---
PROCEDURE: XR KNEE RT 1TO2V INDICATIONS: POST OP RIGHT KNEE TECHNIQUE: 2 view(s) of the knee acquired. COMPARISON: None. FINDINGS: Bones: Patient is status post knee joint arthroplasty. Hardware components are in expected positions. Visualized bony structures are intact. Soft tissues: Overlying postoperative changes are noted. IMPRESSION: Normal alignment after right total knee arthroplasty. Dictated by: Bret Lora M.D. on 06/07/2020 at 14:32 Approved by: Bret Lora M.D. on 06/07/2020 at 14:32
[2020-06-07] MEDS: PREGABALIN 75 MG CAPSULE PO (06:46)
[2020-06-07] MEDS: CELECOXIB 200 MG CAPSULE PO (06:46)
[2020-06-07] MEDS: ACETAMINOPHEN 325 MG TABLET 975 MG PO (06:46)
[2020-06-07] MEDS: VANCOMYCIN 1,000 MG/200 ML PIGGYBACK 200 MG IV (06:49)
--- NOTE | 2020-06-07 07:46 | PM.PREOP ---
Pre-operative Note COVID-19 COVID-19 status: Negative Interval Note History & Physical reviewed/Exam performed by Physician: Yes Changes to H&P: No H&P completed within 30 days and has changed as indicated here:: cor rrr, lungs, clear, abd benign, right leg valgus deformity
--- NOTE | 2020-06-07 07:47 | P.OP_ITS ---
Operative Date/Time/Diagnoses Date of procedure: 06/07/20 Time of procedure: 07:59 Pre-op diagnosis: severe right knee OA Post-op diagnosis: same Procedure & Clinicians Procedure: right total knee arthroplasty Same procedure as scheduled: Yes Indications: The patient has had progressively worsening right knee pain with radiographic changes consistent with arthritis. Non-operative management has failed and the patient has requested total knee replacement. The risks, benefits and alternatives to surgery were discussed with the patient prior to proceeding. Risks discussed included, but were not limited to, failure to relieve pain, stiffness, infection, nerve damage, deep venous thrombosis, pulmonary embolism, stroke, coma, heart attack, permanent paralysis and , as well as the potential need for eventual revision of the prosthetic. Surgeon: Tricia Mac Patent Searcher: Reilly Vazquez Anesthesia Type: General and Spinal Operative Notes Findings: Severe valgus. Adequate stability, at acceptable alignment postoperatively, good range of motion stability. PROCEDURE IN DETAIL: The patient was seen in the pre-operative area, where the patient identified the right knee as the operative site and this was marked with my initials. The patient received pre-operative antibiotics, and was taken to the operating room and placed on the operative table in the supine position. After satisfactory anesthesia, a harness repairer out was performed. The right leg was encircled with a tourniquet about the proximal thigh, and the leg was prepared from the toes to the tourniquet with ChloroPrep in the usual fashion and draped through sterile drapes. The leg was elevated and exsanguinated with Eschmark bandage and the tourniquet inflated to [250] mmHg pressure. The knee was approached through an approximately 18 cm incision centered over the patella and carried into the knee through a medial parapatellar arthrotomy. A portion of the medial and lateral meniscus was resected. Soft tissue was car efully mobilized around the patella the patella was measured with a caliper. Bone was resected from the patella and the patellar height was reconstituted with up an appropriate sized patellar component. It was oval. A Cover was then placed on the patella. A small amount of additional medial and lateral meniscus was resected. The visionary guide fit well to the distal femur. It looked like an appropriate distal femoral cut and the cut was made without difficulty. The rotation was assessed and the appropriate size femoral guide was placed on the distal femur and finishing cuts were made. There is no evidence of notching. The anterior, posterior and chamfer cuts were then made. The posterior osteophytes and soft tissues were then removed. The posterior capsule was injected with part of a mixture of 60 ml 0.25% Marcaine mixed with 20 ml Exparel for post operative pain control. The remainder of this mixture was injected into the capsule and subcutaneous tissues during cement curing. The tibia was prepared and the visionaire guide fit well to the distal tibia. The rotation was assessed. The patient was placed in extension residual medial and lateral meniscus as well as any residual bone was carefully resected. 2 mm additional tibia was resected. Hemostasis was achieved especially posteriorly. Additional local was injected into the posterior capsule. The extension gap was assessed and additional releases for gap balancing were performed as necessary. It was checked with the gap manager respiratory care. The femoral component was trial was placed and the notch was finished. Trial tibial and femoral components were then placed and the knee placed through a range of motion. Range of motion was [0-130], with good stability throughout the range. The trials were then removed, and the tibia was finished. The bone was prepared with pulsatile lavage, and dried with a sponge. Cement was applied and the final prosthetics placed. Excess cement was removed during and after cement curing. A brief Betadine soak was performed. After confirming there was no extruded cement posteriorly, the final tibial insert was placed. The knee was copiously irrigated and the tourniquet deflated. Hemostasis was obtained with the Bovie cautery. A drain was placed and brought out superolaterally. The capsule was closed with interrupted # 1 Vicryl suture. The subcutaneous layer was closed with barbed sutures, and the skin with a running 3-0 V-Lock suture and Surgical glue. An court dressing was applied and the patient was taken to recovery having tolerated the procedure well. Closure Type: primary Specimen(s): none sent Prosthetic devices, grafts, tissues, transplants, or devices: Mac and Nephew Shannon velasquez BCS 2 size 6 femur, size 5 tibia, 35 mm oval patella, 9 mm poly Applied: drain(s) Estimated Blood Loss (mL): 250 Tourniquet time (min): 85 Complications: none Post-operative Condition: stable Disposition: Acute Care Plan for aftercare: The patient will be maintained on a standard total knee replacement protocol with weight bearing as tolerated. The patient will receive aspirin and sequential compression devices for DVT prophylaxis. The patient will be discharged home when safe for the home environment.
[2020-06-07] MEDS: CLINDAMYCIN 900 MG/50 ML PIGGYBACK 50 MG IV ×3 (07:55→23:29)
--- NOTE | 2020-06-07 08:19 | SUR.OPER ---
Supine on padded OR bed. Pillow under head, arms secured on padded armboards <90 degree abduction. Safety belt across torso. Non-operative leg secured with tape over blanket over lower leg. Operative leg secured in DeMayo/Don positioner. Foam padded brace at thigh of operative leg.
[2020-06-07] MEDS: BUPIVACAINE 0.25% W/ EPI 30 ML VIAL 60 ML INJ (08:32)
[2020-06-07] MEDS: BUPIVACAINE LIPOSOME 266 MG/20 ML VIAL INJ (08:33)
[2020-06-07] MEDS: SODIUM CHLORIDE IRRIG SOLUTION 250 ML, POVIDONE-IODINE SPONGE STICKS 1 APPLIC IRR (08:34)
--- NOTE | 2020-06-07 10:51 | SUR.PHASEI ---
1045 Pt handoff to Zach in room 213, pt stable A&O, denies pain or nausea. VSS.
[2020-06-07] MEDS: LACTATED RINGERS 1,000 ML 100 ML IV ×2 (11:23→22:38)
--- NOTE | 2020-06-07 12:26 | PC.NURSE ---
Day shift: Pt on unit from PACU at approx 1030. She is A&Ox3 w/ no c/o pain. PPP and CMS ok. VS WNL. RA 98%. Denies any chest pain. SCD's in place. Oriented to room and call light. Call light in reach. AGrees to not get OOB w/o help from staff.
--- NOTE | 2020-06-07 13:25 | PT.IIE ---
Current Diagnoses Unilateral primary osteoarthritis, right knee (06/07/20) Surgery Performed Operation Date: 06/07/20 07:45 Actual Procedures p Total Knee Arthroplasty(Right) - Tricia Mac MD Surgical History (Last Updated 05/31/20 @ 10:11 by Rebekah Gonzales, RN) History of cholecystectomy (Resolved 1996) History of lateral meniscus repair of right knee (Resolved) History of removal of Port-a-Cath (Acute 10/19/19) History of tonsillectomy (Resolved) S/P lumpectomy, right breast (Acute 07/24/18) Status post hysteroscopy (12/20/17) Medical History (Last Updated 05/31/20 @ 10:14 by Rebekah Gonzales RN) Anemia, unspecified (Resolved) Breast cancer, right (Acute) COVID-19 virus infection (Acute 01/2020) Hypertension (Chronic) Hypothyroid (Chronic) Neuropathy (Acute) Osteoarthritis (Chronic) Other pulmonary embolism with acute cor pulmonale (Resolved) Perimenopausal (Suspected) Personal history of pulmonary embolism (Resolved ~12/2016) Port-A-Cath in place (Acute 08/21/18) Pulmonary hypertension (Resolved ~12/2016) Systolic heart failure (Resolved) Physical Therapy Inpatient Evaluation/Re-Eval M1 PT/OT-IP Prior Functional Status Start: 06/07/20 16:01 Freq: NEEDED Status: Active Protocol: Document 06/07/20 13:25 AB (Rec: 06/07/20 16:12 AB [id number]) Medical Review Prior Functional Status Medical History Reviewed Yes Communication able to make needs known Mobility and Gait pt stated that she is independent with all mobilities and ambulation without AD Social History Household Members spouse Living Arrangements House Number of Floors (Floors) Two Floors Number of Stairs To Enter/Railing? 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 M2 PT-IP Current Condition Start: 06/07/20 16:01 Freq: NEEDED Status: Active Protocol: Document 06/07/20 13:25 AB (Rec: 06/07/20 16:12 [id number]) Physical Therapy Current Condition Current Condition Evaluation Date 06/07/20 Treatment Diagnosis s/p R TKA; difficulty in walking Onset Date 06/07/20 Weight Bearing Status Weight Bearing Status Weight Bear as Tolerated Allowed Weight Bearing Amount (enter % WBAT RLE or #) (%) M3 PT-IP Subjective Start: 06/07/20 16:01 Freq: NEEDED Status: Active Protocol: Document 06/07/20 13:25 AB (Rec: 06/07/20 16:12 [id number]) Subjective Physical Therapy Visit Type Type Initial Evaluation Visit Start Time 13:25 Visit Stop Time 14:04 Total Visit Minutes 39 Number of PROGRAM COUNSELOR Visits 0 Physical Therapy Visit Comments Patient Comments pt is agreeable to do PT Therapy Pain Assessment Pain When Pain Assessed At Rest Pain Present Pain Present Pain Reported Location Right Knee Intensity 1 Scale Used increases to 3/10 with mobility Pain Management Techniques Apply Cold,Modification of Treatment,Re-positioning, Timing of Activity with Medications M4 PT-IP Mobility and Gait Start: 06/07/20 16:01 Freq: NEEDED Status: Active Protocol: Document 06/07/20 13:25 AB (Rec: 06/07/20 16:12 [id number]) PT-Bed Mobility Assessment Supine to Sit Supine to Sit Standby Assistance Sit to Supine Sit to Supine Standby Assistance Scooting Scooting to Edge of Bed Standby Assistance PT-Transfer Assessment Sit to and From Stand Sit to and from Stand Minimal Assistance,1 Person Assistance,Use of Upper Extremities Equipment Transfer Assistive Device Gait Belt,Front Wheeled Walker Orthotic/Prosthetic Devices or Brace: No Transfers Transfer Destination Chair Transfer Technique Stand Step Pivot Transfer Ability Level of Assist Contact Guard Assistance, Minimal Assistance,1 Person Assistance,Use of Upper Extremities Comments Mobility Comments completed supine to sit SBA and was able to sit on EOB SBA . completed sit to stand min A and cues and completed step transfer to chair min A and cues. agreed to ambulate in room. completed sit to stand CGA and cues and ambulated in room using FWW ~ 40 ft initially min A but towards end of ambulation only requiring CGA. Pt agreed to sit up on chair. positioned pt on chair. call light and table placed within reach. Gait Assessment Gait Gait Assistance Required: Contact Guard Assist,Minimum Assistance Distance (Feet) 40 Able to Maintain Weight Bearing Status Yes During Gait Assistive Devices Assistive Device Gait Belt,Front Wheeled Walker Orthotic/Prosthetic Devices or Brace: No Gait Deviations General Gait Pattern Antalgic,Decreased Stride Length,Decreased Feet Clearance Factors Limiting Gait Function Factors Limiting Gait Function Decreased Activity Tolerance, Decreased Sensation,Decreased Strength,Limited Range of Motion,Pain,Poor Balance,Poor Safety Awareness Comments Gait Comments pls refer to mobility section for details PT-Balance Assessment Sitting Balance and Reactions Static Sitting Balance Ability Normal Dynamic Sitting Balance Ability Normal Standing Balance and Reactions Static Standing Balance Ability Fair Dynamic Standing Balance Ability Fair Device Used FWW M5 PT-IP Objective Assessments Start: 06/07/20 16:01 Freq: NEEDED Status: Active Protocol: Document 06/07/20 13:25 AB (Rec: 06/07/20 16:12 AB [id number]) Orientation Orientation/Cognition Level of Alertness Alert Orientation Name,Age,Birthday,Month,Date, Year,Day of Week,Place, Situation Language Function Ability No Deficits Noted Safety Awareness Understands Safety Issues Memory Description No Deficits Noted Gross Range of Motion Lower Extremity ROM Assessment Within Functional Limits Impairments R knee flexion: ~ 90 deg Strength Lower Extremity Strength Assessment Right Impaired Hip 4-/5 Knee 4-/5 Coordination Assessment Gross Coordination Gross Coordination WNL Sensation Assessment Sensation Gross Sensation Right LE Impaired Light Touch Impaired Sensation Description Numbness Comments Sensation Comments still c/o slight numbness on RLE Muscle Tone Muscle Tone WNL Yes M6 PT-IP Treatment Start: 06/07/20 16:01 Freq: NEEDED Status: Active Protocol: Document 06/07/20 13:25 AB (Rec: 06/07/20 16:12 AB [id number]) Physical Therapy Treatment Exercises Exercises Heel Slides Education Education Provided Precautions,Weight Bearing Status,Post-Op Packet,Safety M7 PT-IP Assessment and Plan Start: 06/07/20 16:01 Freq: NEEDED Status: Active Protocol: Document 06/07/20 13:25 AB (Rec: 06/07/20 16:12 AB [id number]) PT Summary Assessment and Plan Potential Rehabilitation Potential Good Status of Condition at Evaluation Stable Summary Impairments Pain,ROM,Strength,Balance, Coordination,Sensation,Tone, Cognition,Bed Mobility, Transfers,Gait,Activity Tolerance Assessment Summary pt s/p R TKA and just had surgery this morning. pt simon likely progress with mobility and plans to go home with spouse to assist her. pt is set up for outpt PT. will conduct caregiver training if appropriate and have to complete stair climbing training prior to d/c. Goals Bed Mobility Goal Independent Transfer Goal Independent,Front Wheeled Walker Gait Goal Independent,Front Wheel Walker Gait Distance 150 Other Goals up/down 5 steps R ledge/rail SBA Days to Meet Goals 5 Frequency of Treatment Frequency Of Treatment Twice a Day Treatment Plan Physical Therapy Treatment Plan Bed Mobility Training,Transfer Training,Gait Training, Therapeutic Exercise,Balance Retraining,Post Op Education, Discharge Planning,Hot or Cold Pack,Neuromuscular Re-ed, Coordination Retraining,Manual Therapy Recommendations To Nursing Amount of Assist Needed 1 Person Assist Discharge Recommendations PT Discharge Recommendations Home with Assistance, Outpatient PT Transportation Needs at Discharge Private Vehicle
[2020-06-07] MEDS: ACETAMINOPHEN 325 MG TABLET 650 MG PO ×2 (13:26→21:58)
[2020-06-07] MEDS: IBUPROFEN 400 MG TABLET PO ×3 (13:26→22:10)
[2020-06-07] MEDS: ASPIRIN EC 81 MG TABLET PO (21:59)
[2020-06-07] MEDS: MAGNESIUM CHLORIDE 64 MG TABLET 128 MG PO (22:00)
[2020-06-07] MEDS: METOPROLOL IR 25 MG TABLET PO (22:00)
[2020-06-07] MEDS: DOCUSATE 100 MG CAPSULE PO (22:00)
[2020-06-08 00:06] VITALS: BP 148/76; PULSE 70; RESP 18; TEMP 36.3; O2SAT 99
[2020-06-08] MEDS: IBUPROFEN 400 MG TABLET PO ×2 (02:24→08:52)
[2020-06-08 05:12] VITALS: BP 135/73; PULSE 71; RESP 18; TEMP 36.3; O2SAT 100
[2020-06-08 05:27] LABS: Hematocrit 32.3 % (36-46)
[2020-06-08 07:40] VITALS: BP 141/75; PULSE 71; RESP 15; TEMP 36.7; O2SAT 100
--- NOTE | 2020-06-08 07:48 | PM.PN.1 ---
Subjective Subjective Date Patient Seen: 06/08/20 Time Patient Seen: 07:48 Interval history: She has been OOB and had no problem voiding. No nausea. Doing well mobilizing. Exam Vital Signs (past 8 hours): - 06/08/20 00:06 06/08/20 05:12 Temperature 97.4 F L 97.3 F L Pulse Rate 70 71 Respiratory Rate 18 18 Blood Pressure 148/76 H 135/73 Pulse Oximetry 99 100 Oxygen Delivery Method Room Air Oxygen Flow Rate 0 Narrative Exam Narrative: Good straight leg raise, calfs are soft bilaterally neurologically intact distally, dressing is dry Objective Labs Result Diagrams: 06/08/20 05:05 Labs: Laboratory Results - last 24 hr 06/08/20 05:05 Hgb 11.0 L Hct 32.3 L Assessment & Plan Assessment & Plan narrative: Doing well after total knee arthroplasty. Outpatient PT and keep outpatient follow up appointment.
[2020-06-08 08:19] VITALS: PULSE 75; RESP 18; O2SAT 99
[2020-06-08] MEDS: ASPIRIN EC 81 MG TABLET PO (08:52)
[2020-06-08] MEDS: METOPROLOL IR 25 MG TABLET PO (08:52)
[2020-06-08] MEDS: MULTIVITAMIN 1 TABLET 1 TAB PO (08:52)
[2020-06-08] MEDS: DOCUSATE 100 MG CAPSULE PO (08:52)
[2020-06-08] MEDS: ACETAMINOPHEN 325 MG TABLET 650 MG PO (08:53)
[2020-06-08] MEDS: ANASTROZOLE 1 MG TABLET PO (08:53)
[2020-06-08] MEDS: MAGNESIUM CHLORIDE 64 MG TABLET 128 MG PO (08:53)
--- NOTE | 2020-06-08 09:19 | CM.DANOTE ---
DCP: Case received, EMR reviewed and met with patient. Introduced self and role. Was able to obtain information from patient regarding her baseline activity status prior to her having surgery. DCP assessment completed with information currently available. Patient is a 55 year old female who admitted yesterday morning to the care of the orthopedic team. PCP: Dr. Ramirez. Payer: confirmed: [employer]. Patient came to the hospital via family vehicle for a surgical procedure. She had right total knee arthroplasty. Patient has had history of chronic knee pain secondary to osteoarthritis. Met with patient in her room. She was sitting up in her chair. Pleasant, alert and oriented. She is independent at baseline, and is employed at [employer]. Her and her , Osmin, reside in [facility]. She confirmed that she is already set up with outpatient P.T. at [facility]. She stated that her will assist her when she goes home. P: Patient is to be discharged home today after P.T. clears her. Kirti Davis RN/Senior Support Analyst
--- NOTE | 2020-06-08 11:01 | PT.IPTN ---
Current Diagnoses Unilateral primary osteoarthritis, right knee (06/07/20) Surgery Performed Operation Date: 06/07/20 07:45 Actual Procedures p Total Knee Arthroplasty(Right) - Tricia Mac MD Physical Therapy Treatment Note M2 PT-IP Current Condition Start: 06/07/20 16:01 Freq: NEEDED Status: Discharge Protocol: Document 06/07/20 13:25 AB (Rec: 06/07/20 16:12 AB [id number]) Physical Therapy Current Condition Current Condition Evaluation Date 06/07/20 Treatment Diagnosis s/p R TKA; difficulty in walking Onset Date 06/07/20 Weight Bearing Status Weight Bearing Status Weight Bear as Tolerated Allowed Weight Bearing Amount (enter % WBAT RLE or #) (%) M3 PT-IP Subjective Start: 06/07/20 16:01 Freq: NEEDED Status: Discharge Protocol: Document 06/08/20 10:36 SP (Rec: 06/08/20 14:08 SP [id number]) Subjective Physical Therapy Visit Type Type Treatment Note Visit Start Time 10:36 Visit Stop Time 11:01 Total Visit Minutes 25 Notes attended PT tx and provided assistance needed during mobility, caregiver training. Number of PROVIDER RELATIONS MANAGER Visits 1 Physical Therapy Visit Comments Patient Comments pt is agreeable to do PT Therapy Pain Assessment Pain When Pain Assessed At Rest Pain Present Pain Present Pain Reported Location Right Knee Intensity 1 Scale Used 1/10 at rest, 2/10 during mobility Pain Management Techniques Apply Cold,Modification of Treatment,Re-positioning, Timing of Activity with Medications M4 PT-IP Mobility and Gait Start: 06/07/20 16:01 Freq: NEEDED Status: Discharge Protocol: Document 06/08/20 10:36 SP (Rec: 06/08/20 14:08 SP [id number]) PT-Bed Mobility Assessment Supine to Sit Supine to Sit Independent Sit to Supine Sit to Supine Independent Scooting Scooting to Edge of Bed Independent PT-Transfer Assessment Sit to and From Stand Sit to and from Stand Standby Assistance,Use of Upper Extremities Equipment Transfer Assistive Device Gait Belt,Front Wheeled Walker Orthotic/Prosthetic Devices or Brace: No Transfers Transfer Destination Chair Transfer Technique Stand Step Pivot Transfer Ability Level of Assist Standby Assistance,Use of Upper Extremities Comments Mobility Comments Instructed in R LE post op exercises supine, sitting. Completed supine<>sitting I with no use of UEs required. Sit<>stand using BUE to push from bed to stand. Pt has a personal FWW and used during tx. Pt ambulated further distance into hallway using FWW SBA provided by from bed to stairs, ascend/ descend 6 stairs CGA by using RHR and CYLINDRICAL MIXER on L step to patterning, stable then back to her room approx 250 ft total. Pt requested to lay back down when returned to room to rest. PROVIDER RELATIONS MANAGER reapplied SCDs to BLE and provided a warm blanket. in room and nursing entered when leaving to discuss DC. Pt had call light and all needs in reach before left. Pt is ok to return home with to assist her when medically stable. Recommending outpt PT to progress in ROM, strength to increase functional mobility. Gait Assessment Gait Gait Assistance Required: Standby Assistance Distance (Feet) 250 Able to Maintain Weight Bearing Status Yes During Gait Assistive Devices Assistive Device Gait Belt,Front Wheeled Walker Orthotic/Prosthetic Devices or Brace: No Gait Deviations General Gait Pattern Antalgic,Decreased Stride Length,Decreased Feet Clearance,Step-to Gait Factors Limiting Gait Function Factors Limiting Gait Function Decreased Activity Tolerance, Decreased Sensation,Decreased Strength,Limited Range of Motion,Pain,Poor Balance,Poor Safety Awareness Comments Gait Comments Ambulated 250 ft in hallways using FWW SBA provided by . Cued R knee flexion, heel toe patterning and step over step with noted improvement and decreased BUE WB on FWW as distance progressed. Stair Climbing Assessment Evaluation Level of Assist On Stairs Contact Guard Assistance,1 Person Assistance Devices Stair Climbing Assistive Devices Right Railing Technique/Endurance Stair Climbing Direction Ascend and Descend Stair Climbing Technique Step to Step Number of Steps Climbed 3 Stair Climbing Set # Repetitions (reps) 2 Comments Stair Climbing Comments See mobility comments for details. PT-Balance Assessment Sitting Balance and Reactions Static Sitting Balance Ability Normal Dynamic Sitting Balance Ability Normal Standing Balance and Reactions Static Standing Balance Ability Good Dynamic Standing Balance Ability Good Device Used FWW M5 PT-IP Objective Assessments Start: 06/07/20 16:01 Freq: NEEDED Status: Discharge Protocol: Document 06/07/20 13:25 AB (Rec: 06/07/20 16:12 AB [id number]) Orientation Orientation/Cognition Level of Alertness Alert Orientation Name,Age,Birthday,Month,Date, Year,Day of Week,Place, Situation Language Function Ability No Deficits Noted Safety Awareness Understands Safety Issues Memory Description No Deficits Noted Gross Range of Motion Lower Extremity ROM Assessment Within Functional Limits Impairments R knee flexion: ~ 90 deg Strength Lower Extremity Strength Assessment Right Impaired Hip 4-/5 Knee 4-/5 Coordination Assessment Gross Coordination Gross Coordination WNL Sensation Assessment Sensation Gross Sensation Right LE Impaired Light Touch Impaired Sensation Description Numbness Comments Sensation Comments still c/o slight numbness on RLE Muscle Tone Muscle Tone WNL Yes M6 PT-IP Treatment Start: 06/07/20 16:01 Freq: NEEDED Status: Discharge Protocol: Document 06/08/20 10:36 SP (Rec: 06/08/20 14:08 SP [id number]) Physical Therapy Treatment Exercises Exercises Ankle Pumps,Gluteal Sets,Quad Sets,Heel Slides,Straight Leg Raises,Short Arc Quads,Seated Knee Flexion/Extension Knee ROM Measurement 90 deg supine and sitting. Education Education Provided Precautions,Weight Bearing Status,Post-Op Packet,Safety M7 PT-IP Assessment and Plan Start: 06/07/20 16:01 Freq: NEEDED Status: Discharge Protocol: Document 06/08/20 10:36 SP (Rec: 06/08/20 14:08 SP [id number]) PT Summary Assessment and Plan Potential Rehabilitation Potential Good Status of Condition at Evaluation Stable Summary Impairments Pain,ROM,Strength,Balance, Coordination,Sensation,Tone, Cognition,Bed Mobility, Transfers,Gait,Activity Tolerance Assessment Summary Pt able to complete mobility sBA and used FWW, completed stair mgt CGA. Completed caregiver training with . Pt is ok to return home with her to assist her as needed when medically stable. pt is set up for outpt PT. Goals Bed Mobility Goal Independent Transfer Goal Independent,Front Wheeled Walker Gait Goal Independent,Front Wheel Walker Gait Distance 150 Other Goals up/down 5 steps R ledge/rail SBA Days to Meet Goals 5 Frequency of Treatment Frequency Of Treatment Twice a Day Treatment Plan Physical Therapy Treatment Plan Bed Mobility Training,Transfer Training,Gait Training, Therapeutic Exercise,Balance Retraining,Post Op Education, Discharge Planning,Hot or Cold Pack,Neuromuscular Re-ed, Coordination Retraining,Manual Therapy Recommendations To Nursing Amount of Assist Needed Standby Assistance Discharge Recommendations PT Discharge Recommendations Home with Assistance, Outpatient PT Transportation Needs at Discharge Private Vehicle
--- NOTE | 2020-06-08 11:19 | PC.NURSE ---
Discharge teaching done regarding post op knee replacement, medications for home, weight bearing and movement, and signs and symptoms of infection. Patient and verbalized understanding of teachings. Paper copy Prescription given to patient for 5mg Oxycodone. Patient leaving hospital via wheelchair and private car w/ .
== END 2020-06-08 11:24 | disposition home or self-care (01) ==
LOC: OR 06:18 → AC 06:19
PROVIDERS: Family Provider Internal Medicine; PCP Internal Medicine; Referring Provider Internal Medicine; Visit Provider Orthopaedic Surgery
PROC: 0SRC0JZ Replacement of Right Knee Joint with Synthetic Substitute, Open Approach (ICD-10-PCS; CPT 27447; principal; 2020-06-07 07:45)
DX: M17.11 Unilateral primary osteoarthritis, right knee (principal); M21.061 Valgus deformity, not elsewhere classified, right knee; E03.9 Hypothyroidism, unspecified; E66.9 Obesity, unspecified; Z85.3 Personal history of malignant neoplasm of breast; Z86.711 Personal history of pulmonary embolism
CPT/HCPCS: 27447; 36415; 73560; 85014; 85018; 94760; 97116; 97161; 97530; C1776; C9290; J1100; J2250; J2405; J2704; J3010

== ENCOUNTER → 2020-10-03 09:21 | Outpatient (CLI) | payer OTHER, SELFPAY ==
[2020-06-07 10:58] VITALS: BMI 38.7
[2020-10-03 10:45] LABS: COVID19 -Nasal RAPID Negative (Negative)
== END ==
PROVIDERS: Family Provider Internal Medicine; PCP Family Medicine; Visit Provider Nurse Practitioner Family
DX: Z20.828 Contact with and (suspected) exposure to other viral communicable diseases (principal)
CPT/HCPCS: 87635

== ENCOUNTER 2020-10-06 06:13 | Day surgery (SDC) | payer OTHER, SELFPAY ==
[2020-06-07 10:58] VITALS: BMI 38.7
[2020-10-04 12:27] VITALS: BMI 44.4
[2020-10-06] VITALS (11 sets, daily range): BP systolic 120–152; BP diastolic 56–94; PULSE 70–93; RESP 10–16; TEMP 35.7–36.6; O2SAT 92–97; BMI 44.4
[2020-10-06] MEDS: LACTATED RINGERS 1,000 ML 42 ML IV ×2 (06:54→09:26)
[2020-10-06] MEDS: PREGABALIN 75 MG CAPSULE PO (07:03)
[2020-10-06] MEDS: ACETAMINOPHEN 325 MG TABLET 975 MG PO (07:03)
[2020-10-06] MEDS: CELECOXIB 200 MG CAPSULE PO (07:03)
[2020-10-06] MEDS: VANCOMYCIN 1,000 MG/200 ML PIGGYBACK 200 MG IV (07:25)
--- NOTE | 2020-10-06 07:50 | DI.RAD.S_ITS ---
PROCEDURE: XR KNEE LT 1TO2V INDICATIONS: post op TKA TECHNIQUE: Two views of the left knee acquired. COMPARISON: [facility], CR, XR KNEE 4+ VIEWS RIGHT, 06/20/2020, 13:39. [facility], CR, XR KNEE RT 1TO2V, 06/07/2020, 13:20. FINDINGS: Bones: Patient is status post left knee joint arthroplasty. Hardware components are in expected positions. Visualized bony structures are intact. Soft tissues: Overlying postoperative changes are noted including a surgical drain as well as fluid and gas in the joint space. IMPRESSION: 1. Expected postsurgical changes status post left knee arthroplasty. Dictated by: Omer Chan M.D. on 10/06/2020 at 11:43 Approved by: Omer Chan M.D. on 10/06/2020 at 11:44
--- NOTE | 2020-10-06 08:03 | PM.PREOP ---
Pre-operative Note Interval Note History & Physical reviewed/Exam performed by Physician: Yes Changes to H&P: No
--- NOTE | 2020-10-06 08:04 | P.OP_ITS ---
Operative Date/Time/Diagnoses Date of procedure: 10/06/20 Time of procedure: 08:04 Pre-op diagnosis: left knee OA Post-op diagnosis: same Procedure & Clinicians Procedure: Left total knee arthroplasty Same procedure as scheduled: Yes Indications: The patient has had progressively worsening left knee pain with radiographic changes consistent with arthritis. Non-operative management has failed and the patient has requested total knee replacement. The risks, benefits and alternatives to surgery were discussed with the patient prior to proceeding. Risks discussed included, but were not limited to, failure to relieve pain, stiffness, infection, nerve damage, deep venous thrombosis, pulmonary embolism, stroke, coma, heart attack, permanent paralysis and , as well as the potential need for eventual revision of the prosthetic. Surgeon: Tricia Mac [employer] Designer: Marietta Conte Anesthesia Type: General and Spinal Operative Notes Findings: Severe left knee osteoarthritis, good stability Closure Type: primary Specimen(s): none sent Prosthetic devices, grafts, tissues, transplants, or devices: [facility] 2 size 35 oval patella, size 6 left femur, size 5 tibia, +9 poly Applied: drain(s) Estimated Blood Loss (mL): 250 Blood products transfused: none Tourniquet time (min): 88 Procedure in detail: The patient was seen in the pre-operative area, where the patient identified the left knee as the operative site and this was marked with my initials. The patient received pre-operative antibiotics, and was taken to the operating room and placed on the operative table in the supine position. After satisfactory anesthesia, a time stamp assembler out was performed. The left leg was encircled with a tourniquet about the proximal thigh, and the leg was prepared from the toes to the tourniquet with ChloroPrep in the usual fashion and draped through sterile drapes. The leg was elevated and exsanguinated with Eschmark bandage and the tourniquet inflated to [250] mmHg pressure. The knee was approached through an approximately 18 cm incision centered over the patella and carried into the knee through a medial parapatellar arthrotomy. A portion of the medial and lateral meniscus was resected. Soft tissue was carefully mobilized around the patella the patella was measured with a caliper. Bone was resected from the patella and the patellar height was reconstituted with up an appropriate sized patellar component. A cover was then placed on the patella. A small amount of additional medial and lateral meniscus was resected. The visionare guide fit well to the distal femur. It looked like an appropriate distal femoral cut and the cut was made without difficulty. The rotation was assessed and the appropriate size femoral guide was placed on the distal femur and finishing cuts were made. There was no evidence of notching. The anterior, posterior and chamfer cuts were then made. The posterior osteophytes and soft tissues were then removed. The posterior capsule was injected with part of a mixture of 60 ml 0.25% Marcaine mixed with 20 ml Exparel for post operative pain control. The remainder of this mixture was injected into the capsule and subcutaneous tissues during cement curing. The tibia was prepared and the visionaire guide fit well to the distal tibia. The rotation was assessed. The patient was placed in extension residual medial and lateral meniscus as well as any residual bone was carefully resected. [No] additional tibia was resected. Hemostasis was achieved especially posteriorly. Additional local was injected into the posterior capsule. The extension gap was assessed and additional releases for gap balancing were performed as necessary. It was checked with the gap sharepoint solutions architect. The femoral component was trial was placed and the notch was finished. Trial tibial and femoral components were then placed and the knee placed through a range of motion. Range of motion was [0-130], with good stability throughout the range. The trials were then removed, and the tibia was finished. The bone was prepared with pulsatile lavage, and dried with a sponge. Cement was applied and the final prosthetics placed. Excess cement was removed during and after cement curing. A brief Betadine soak was performed. After confirming there was no extruded cement posteriorly, the final tibial insert was placed. The knee was copiously irrigated and the tourniquet deflated. Hemostasis was obtained with the Bovie cautery. A drain was placed and brought out superolaterally. The capsule was closed with interrupted Vicryl. The subcutaneous layer was closed with barbed sutures, and the skin with a running 3-0 V-Lock suture and Surgical glue. An Aquacel Ag dressing was applied and the patient was taken to recovery having tolerated the procedure well. Complications: none Post-operative Condition: stable Disposition: Acute Care Plan for aftercare: The patient will be maintained on a standard total knee replacement protocol with weight bearing as tolerated. The patient will receive aspirin and sequential compression devices for DVT prophylaxis. The patient will be discharged home when safe for the home environment.
[2020-10-06] MEDS: CLINDAMYCIN 900 MG/50 ML PIGGYBACK 50 MG IV ×2 (08:26→16:29)
[2020-10-06] MEDS: BUPIVACAINE 0.25% W/ EPI (PF) 10 ML VIAL 20 ML INJ (08:35)
[2020-10-06] MEDS: TRANEXAMIC ACID 1,000 MG VIAL 2000 MG INJ ×2 (08:36→10:15)
[2020-10-06] MEDS: BUPIVACAINE LIPOSOME 266 MG/20 ML VIAL INJ (08:37)
--- NOTE | 2020-10-06 12:25 | PC.NURSE ---
Addendum entered by Brandy Sargent R.N. 10/06/20 13:35: Unclamped Hemovac at 1230. IS at bedside. Original Note: Day shift note: Received patient from PACU, awake, alert, and pleasantly cooperative. IVF, SCDs initiated on arrival. Oriented to room, environment, and plan of care. Call light within reach, spouse Osmin at bedside providing supportive care.
[2020-10-06] MEDS: IBUPROFEN 400 MG TABLET PO ×2 (12:29→16:29)
[2020-10-06] MEDS: LACTATED RINGERS 1,000 ML 100 ML IV (12:30)
[2020-10-06] MEDS: ACETAMINOPHEN 325 MG TABLET 650 MG PO (14:40)
--- NOTE | 2020-10-06 15:27 | PT.IIE ---
Current Diagnoses Unilateral primary osteoarthritis, left knee (10/06/20) Surgery Performed Operation Date: 10/06/20 07:45 Actual Procedures p Total Knee Arthroplasty(Left) - Tricia Mac MD Surgical History (Last Updated 05/31/20 @ 10:11 by Rebekah Gonzales, RN) History of cholecystectomy (1996) History of lateral meniscus repair of right knee History of removal of Port-a-Cath (10/19/19) History of tonsillectomy S/P lumpectomy, right breast (07/24/18) Status post hysteroscopy (12/20/17) Medical History (Last Updated 05/31/20 @ 10:14 by Rebekah Gonzales RN) Anemia, unspecified Breast cancer, right COVID-19 virus infection (01/2020) Hypertension Hypothyroid Neuropathy Osteoarthritis Other pulmonary embolism with acute cor pulmonale Perimenopausal Personal history of pulmonary embolism (~12/2016) Port-A-Cath in place (08/21/18) Pulmonary hypertension (~12/2016) Systolic heart failure Physical Therapy Inpatient Evaluation/Re-Eval M1 PT/OT-IP Prior Functional Status Start: 10/06/20 14:22 Freq: NEEDED Status: Active Protocol: Document 10/06/20 15:06 AW (Rec: 10/06/20 15:27 AW [id number]) Medical Review Prior Functional Status Medical History Reviewed Yes Communication WNL. Pt is an effective verbal communicator. Mobility and Gait WNL. Pt had R TKA on 06/07/20 and has progressed well with her rehab. 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 Activities of Daily Living and IADL's Independent in all regards. Social History Household Members spouse Living Arrangements House Number of Floors (Floors) Two Floors Number of Stairs To Enter/Railing? 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 She lives in [place] with her spouse who is also an RN. M2 PT-IP Current Condition Start: 10/06/20 14:22 Freq: NEEDED Status: Active Protocol: Document 10/06/20 15:06 AW (Rec: 10/06/20 15:27 AW [id number]) Physical Therapy Current Condition Current Condition Evaluation Date 10/06/20 Treatment Diagnosis L TKA; difficulty in walking Onset Date 10/06/20 Weight Bearing Status Weight Bearing Status Weight Bear as Tolerated M3 PT-IP Subjective Start: 10/06/20 14:22 Freq: NEEDED Status: Active Protocol: Document 10/06/20 15:06 AW (Rec: 10/06/20 15:27 AW [id number]) Subjective Physical Therapy Visit Type Type Initial Evaluation Visit Start Time 14:30 Visit Stop Time 15:02 Total Visit Minutes 32 Physical Therapy Visit Comments Patient Comments I'd like to try to use the toilet. Patient Goals Return home and begin rehab REESE. Therapy Pain Assessment Pain When Pain Assessed During Mobility Pain Present Pain Present Denied Pain M4 PT-IP Mobility and Gait Start: 10/06/20 14:22 Freq: NEEDED Status: Active Protocol: Document 10/06/20 15:06 AW (Rec: 10/06/20 15:27 AW [id number]) PT-Bed Mobility Assessment Supine to Sit Supine to Sit Standby Assistance Scooting Scooting to Edge of Bed Standby Assistance PT-Transfer Assessment Sit to and From Stand Sit to and from Stand Contact Guard Assistance,Use of Upper Extremities Equipment Transfer Assistive Device Gait Belt,Front Wheeled Walker Orthotic/Prosthetic Devices or Brace: No Transfers Transfer Destination Chair,Toilet Transfer Technique Stand Step Pivot Transfer Ability Level of Assist Contact Guard Assistance,Use of Upper Extremities Comments Mobility Comments Pt was lying in the bed as PT arrived. BP was 140/77. With HOB flat, pt completed supine to sit with increased time but only SBA. She sat EOB for assessment with good balance before completing sit to stand CGA using FWW. Pt was able to shift her weight side to side with minimal UE weightbearing on the walker. She ambulated to the toilet SBA and transferred to and from using the left-sided grab bar CGA. Pt then ambulated to the sink where she was able to stand and reach for soap and towels SBA. Pt agreed to ambulate in the halls for a total of 150 feet SBA with FWW. Pt returned to the room and transferred to the chair CGA where she was positioned with call light and all needs in reach, and fresh ice packs applied to left knee. Gait Assessment Gait Gait Assistance Required: Standby Assistance Distance (Feet) 150 Able to Maintain Weight Bearing Status Yes During Gait Assistive Devices Assistive Device Gait Belt,Front Wheeled Walker Orthotic/Prosthetic Devices or Brace: No Gait Deviations General Gait Pattern Antalgic,Decreased Feet Clearance,Flexed Trunk,Step-to Gait Factors Limiting Gait Function Factors Limiting Gait Function Decreased Sensation,Decreased Strength,Limited Range of Motion Comments Gait Comments Pt ambulated with FWW and minimal UE weightbearing. Gait was antalgic with slightly decreased LLE stance time. Stair Climbing Assessment Comments Stair Climbing Comments Not assessed. PT-Balance Assessment Sitting Balance and Reactions Static Sitting Balance Ability Normal Dynamic Sitting Balance Ability Normal Standing Balance and Reactions Static Standing Balance Ability Good Dynamic Standing Balance Ability Good Device Used FWW M5 PT-IP Objective Assessments Start: 10/06/20 14:22 Freq: NEEDED Status: Active Protocol: Document 10/06/20 15:06 AW (Rec: 10/06/20 15:27 AW [id number]) Orientation Orientation/Cognition Level of Alertness Alert Orientation Name,Birthday,Day of Week, Place,Situation Language Function Ability No Deficits Noted Safety Awareness Understands Safety Issues Memory Description No Deficits Noted Gross Range of Motion Lower Extremity ROM Assessment Left Impaired Strength Lower Extremity Strength Assessment Left Impaired Hip 4/5 Knee 3/5 Ankle 4/5 Comments Strength Comments RLE grossly 4+/5 Coordination Assessment Gross Coordination Gross Coordination WNL Sensation Assessment Sensation Gross Sensation Right LE Impaired,Left LE Impaired Light Touch Impaired Sensation Description Numbness Comments Sensation Comments Pt c/o numbness posterior bilateral thighs and saddle region. Muscle Tone Muscle Tone WNL Yes M6 PT-IP Treatment Start: 10/06/20 14:22 Freq: NEEDED Status: Active Protocol: Document 10/06/20 15:06 AW (Rec: 10/06/20 15:27 AW [id number]) Physical Therapy Treatment Exercises Exercises Ankle Pumps,Quad Sets,Heel Slides,Passive Knee Extension Hang Education Education Provided Precautions,Weight Bearing Status,Post-Op Packet,Safety Other Treatments Other Treatment Performed Provided education on role of PT, plan of care, weightbearing status, safe use of FWW. M7 PT-IP Assessment and Plan Start: 10/06/20 14:22 Freq: NEEDED Status: Active Protocol: Document 10/06/20 15:06 AW (Rec: 10/06/20 15:27 AW [id number]) PT Summary Assessment and Plan Potential Rehabilitation Potential Excellent Status of Condition at Evaluation Evolving Summary Impairments Pain,ROM,Strength,Balance, Sensation,Bed Mobility, Transfers,Gait,Activity Tolerance Assessment Summary Christine is a 55yo woman seen for PT evaluation on POD0 following L TKA. She has recent history of R TKA and has progressed well with her rehab. 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 On evaluation, pt required SBA to CGA for all mobilities including 150 feet ambulation with FWW. Pt must clear stairs prior to discharge. PT anticipates pt will be safe to discharge home with spouse assist and outpatient PT once medically cleared. Goals Bed Mobility Goal Independent Transfer Goal Independent,Front Wheeled Walker Gait Goal Independent,Front Wheel Walker Gait Distance 200 Other Goals - up/down 3 steps with right rail or METEOROLOGY PROFESSOR Days to Meet Goals 2 Frequency of Treatment Frequency Of Treatment Twice a Day Treatment Plan Physical Therapy Treatment Plan Bed Mobility Training,Transfer Training,Gait Training, Therapeutic Exercise,Balance Retraining,Post Op Education, Discharge Planning,Hot or Cold Pack Other Recommendations and Next Treatment review ther ex, progress gait Focus with FWW, stairs Recommendations To Nursing Amount of Assist Needed Standby Assistance,1 Person Assist Discharge Recommendations PT Discharge Recommendations Home with Assistance, Outpatient PT Transportation Needs at Discharge Private Vehicle
--- NOTE | 2020-10-06 16:20 | PM.PNPO.1 ---
Subjective Subjective Date Patient Seen: 10/06/20 Time Patient Seen: 16:20 Interval history: She did well with anesthesia. She has been able to void spontaneously. She has been up ambulating in the jones with minimal pain. Her dressing is dry and intact. Exam Vital Signs (past 8 hours): - 10/06/20 10:48 10/06/20 10:53 10/06/20 10:58 Temperature 97.3 F L Pulse Rate 79 79 71 Respiratory Rate 12 11 L 10 L Blood Pressure 135/59 L 125/56 L 120/66 Pulse Oximetry 94 96 95 10/06/20 11:03 10/06/20 11:14 10/06/20 11:30 Temperature 97.9 F 96.2 F L Pulse Rate 79 70 71 Respiratory Rate 10 L 11 L 16 Blood Pressure 136/68 131/67 142/72 H Pulse Oximetry 93 93 96 10/06/20 12:00 10/06/20 12:30 10/06/20 13:30 Temperature 96.9 F L 97.1 F L 97.2 F L Pulse Rate 74 93 H 70 Respiratory Rate 16 16 16 Blood Pressure 145/62 H 140/77 137/68 Pulse Oximetry 96 95 97 10/06/20 14:30 Temperature 96.5 F L Pulse Rate 81 Respiratory Rate 16 Blood Pressure 129/60 Pulse Oximetry 92 Oxygen Delivery Method Room Air Oxygen Flow Rate 0 Narrative Exam Narrative: Doing well postoperatively. Better than anticipated. She has already been up ambulating and has been able to void spontaneously. She is confident with her walker and would like to be discharged to home. Her calfs are soft bilaterally and her dressings intact. [facility] Medical History (Updated 05/31/20 @ 10:14 by Rebekah Gonzales RN) Anemia, unspecified Breast cancer, right COVID-19 virus infection (01/2020) Hypertension Hypothyroid Neuropathy Osteoarthritis Other pulmonary embolism with acute cor pulmonale Perimenopausal Personal history of pulmonary embolism (~12/2016) Port-A-Cath in place (08/21/18) Pulmonary hypertension (~12/2016) Systolic heart failure Surgical History (Updated 05/31/20 @ 10:11 by Rebekah Gonzales RN) History of cholecystectomy (1996) History of lateral meniscus repair of right knee History of removal of Port-a-Cath (10/19/19) History of tonsillectomy S/P lumpectomy, right breast (07/24/18) Status post hysteroscopy (12/20/17) Social History household members: spouse Smoking Status: Former smoker alcohol intake: current Assessment & Plan Post-op Postoperative Procedures: Procedures Operation Date: 10/06/20 07:45 Actual Procedures Side Surgeon p Total Knee Arthroplasty Left Tricia Mac MD Postoperative day: 1 Postoperative status: doing well Postoperative status narrative: Doing well postoperatively the plan is to discharge to home. We will take her Hemovac out prior to discharge and give her 1 dose of antibiotics. Postoperative plan: routine post-op care Time Spent With Patient Time with patient: less than 15 minutes
--- NOTE | 2020-10-06 18:34 | PC.NURSE ---
Discharge note: Pt given D/C instructions with spouce at bedside. Pt expresses understanding. IV D/C prior to discharge, pt dressed with spouse. Pt taken to car via wheelchair with HOME CARE AIDE.
== END 2020-10-06 18:30 | disposition home or self-care (01) ==
LOC: OR 06:17 → AC 06:19
PROVIDERS: Family Provider Internal Medicine; PCP Family Medicine; Referring Provider Family Medicine; Visit Provider Orthopaedic Surgery
PROC: 0SRD0JZ Replacement of Left Knee Joint with Synthetic Substitute, Open Approach (ICD-10-PCS; CPT 27447; principal; 2020-10-06 07:45)
DX: M17.12 Unilateral primary osteoarthritis, left knee (principal); I10 Essential (primary) hypertension; E66.9 Obesity, unspecified; E03.9 Hypothyroidism, unspecified; Z86.711 Personal history of pulmonary embolism
CPT/HCPCS: 27447; 73560; 97116; 97161; C1776; C9290; J1100; J2250; J2405; J2704; J3010